=== PATIENT | female | born 1990 | race African-American/Black ===

== ENCOUNTER 2021-08-12 04:50 | Emergency (ER) | payer OTHER ==
[~2021-08-12] VITALS: Ht 167.6 cm; Wt 72.6 kg
[2021-08-12 05:05] VITALS: BP 148/77
[2021-08-12] MEDS ORDERED: FLEXERIL PO (05:14)
== END 2021-08-12 05:52 | disposition home or self-care (01) ==
LOC: ER 04:50
DX: M54.2 Cervicalgia (principal); F12.90 Cannabis use, unspecified, uncomplicated